=== PATIENT | female | born 1930 | race Caucasian/White ===

== ENCOUNTER 2017-10-15 08:18 | Inpatient (IN) | payer MEDICARE ==
[~2017-10-15] VITALS: Ht 160 cm; Wt 59.0 kg
[2017-10-15] MEDS ORDERED: normal saline 1000ml 1,000 ML IV ONE (08:26)
[2017-10-15] MEDS ORDERED: nitroGLYCERIN 0.2mg/hour patch TD ONE (08:30)
[2017-10-15 09:12] LABS: CLARITY,URINE Clear (Clear); COLOR,URINE Yellow (Yellow); GLUCOSE, URINE Negative (Neg); KETONES,URINE Negative (Neg); LEUKOCYTE ESTERASE ,URINE Trace (Neg); NITRITES, URINE Negative (Neg); OCCULT BLOOD,URINE Negative (Neg); PROTEIN,URINE Negative (Neg); UROBILINOGEN,URINE 0.2 E.U/dL (0.2-1.0)
[2017-10-15 09:14] LABS: UA COLLECTION TYPE STRAIGHT CATH
[2017-10-15 09:26] LABS: BACTERIA,URINE 2+ /HPF (Neg); RBC,URINE NONE SEEN /HPF (0-2); SQUAMOUS EPITHELIAL CELL,UR FEW /LPF (FEW); WBC,URINE 0-4 /HPF (0-4)
[2017-10-15 10:00] LABS: ALANINE AMINOTRANSFERASE 17 U/L (12-78); ALBUMIN/GLOBULIN RATIO 1.3 (1.1-1.5); ALKALINE PHOSPHATASE 83 IU/L (46-116); ANION GAP 8 (8-16); ASPARTATE AMINO TRANSFERASE 15 U/L (10-37); BILIRUBIN,TOTAL 0.8 MG/DL (0.1-1.0); BLOOD UREA NITROGEN 16 MG/DL (7-18); CALCIUM 9.4 MG/DL (8.5-10.1); CHLORIDE 95 MMOL/L (99-107); CREATINE KINASE 27 U/L (26-192); GLUCOSE 253 MG/DL (70-104); MAGNESIUM 1.3 MG/DL (1.5-2.4); PHOSPHORUS 3.8 MG/DL (2.3-4.5); POTASSIUM 3.8 MMOL/L (3.5-5.1); SODIUM 134 MMOL/L (135-145); TOTAL CARBON DIOXIDE 30.6 MMOL/L (24-32); TOTAL PROTEIN 7.2 G/DL (6.4-8.2); eGFR 68 ML/MIN
[2017-10-15 10:18] LABS: HEMATOCRIT 30.3 % (35.0-45.0); HEMOGLOBIN 9.7 g/dl (12.0-16.0); MEAN CORPUSCULAR HEMOGLOBIN 25.2 PG (27.0-31.0); MEAN CORPUSCULAR HGB CONC 32.1 % (33.0-36.5); MEAN CORPUSCULAR VOLUME 78.7 FL (78-98); MEAN PLATELET VOLUME 10.2 FL (7.4-10.4); PLATELET COUNT 531 X10'3 (140-440); RED BLOOD COUNT 3.86 X10'6 (4.20-5.60); RED CELL DISTRIBUTION WIDTH 18.6 % (11.5-14.5); WHITE BLOOD COUNT 8.7 X10'3 (4.5-11.0)
[2017-10-15 10:25] LABS: TOTAL CELLS COUNTED 100
[2017-10-15 10:26] LABS: PLATELET ESTIMATE INCREASED
[2017-10-15 10:28] LABS: ANISOCYTOSIS 2+
[2017-10-15 10:30] LABS: GIANT PLATELET FEW; LARGE PLATELETS MODERATE
[2017-10-15 10:31] LABS: MICROCYTOSIS 1+; POIKILOCYTOSIS 1+; POLYCHROMASIA 1+
[2017-10-15 10:35] LABS: INR 1.1 INR; PARTIAL THROMBOPLASTIN TIME 28 SECONDS (22-32); PROTHROMBIN TIME 11.3 SECONDS (9.0-12.0)
[2017-10-15] MEDS ORDERED: METO25TA6 PO (11:04)
[2017-10-15] MEDS ORDERED: VALS1TAB75 PO (11:04)
[2017-10-15] MEDS ORDERED: HYDR500C18 PO (11:04)
[2017-10-15] MEDS ORDERED: POTA20PA3 (11:04)
[2017-10-15] MEDS ORDERED: CHOL100046 PO (11:04)
[2017-10-15] MEDS ORDERED: ATOR40TA PO (11:04)
[2017-10-15] MEDS ORDERED: APIX2.5T PO (11:04)
[2017-10-15] MEDS ORDERED: MAGN500C16 PO (11:04)
[2017-10-15] MEDS ORDERED: LEVO175T2 PO (11:04)
[2017-10-15] MEDS ORDERED: ASPI-1265 PO (11:04)
[2017-10-15] MEDS ORDERED: acetaminophen 325mg tablet PO PRN ×2 (12:50)
[2017-10-15] MEDS ORDERED: potassium Cl 40MEQ/NS 500ml 500 ML IV PRN ×2 (12:50)
[2017-10-15] MEDS ORDERED: magnesium 4gm in 100ml NS 100 ML IV PRN (12:50)
[2017-10-15] MEDS ORDERED: mag hydrox/Alum hydrox/simeth 30ml oral suspension PO PRN (12:50)
[2017-10-15] MEDS ORDERED: morphine 2 MG/ML inj. syringe IV PRN ×2 (12:50)
[2017-10-15] MEDS ORDERED: HYDROcodone/acetaminophen 5mg/325mg tablet PO PRN (12:50)
[2017-10-15] MEDS ORDERED: HYDROcodone/acetaminophen 10/325mg tab PO PRN (12:50)
[2017-10-15] MEDS ORDERED: magnesium 2GM in 50ml NS 50 ML IV PRN (12:50)
[2017-10-15] MEDS ORDERED: ondansetron/PF 4mg/2ml inj IV PRN (12:50)
[2017-10-15] MEDS ORDERED: magnesium hydroxide 30ml (MOM) UD suspension PO PRN (12:50)
[2017-10-15] MEDS ORDERED: potassium Cl 20 mEq SR tablet PO PRN ×2 (12:50)
[2017-10-15] MEDS ORDERED: magnesium 2GM in 50ml NS 50 ML IV ONE (12:50)
[2017-10-15] MEDS ORDERED: magnesium Cl slow-release 64mg tablet PO PRN (12:50)
[2017-10-15] MEDS ORDERED: pantoprazole 40 MG vial IV ONE (14:15)
[2017-10-15 14:25] VITALS: BP 169/98
[2017-10-15] MEDS: normal saline 1000ml 1,000 ML IV SCH ×2 (14:37→23:45)
[2017-10-15 14:57] LABS: OCCULT BLOOD STOOL POSITIVE (Neg)
[2017-10-15 15:00] VITALS: BP 146/70
[2017-10-15] MEDS ORDERED: MESSAGE TO PHARMACY PO ONE (15:20)
[2017-10-15] MEDS ORDERED: glucagon, human recombinant 1mg kit SUBCUT PRN (15:20)
[2017-10-15] MEDS ORDERED: dextrose ORAL solution 15 GM/59 ML bottle PO PRN ×2 (15:20)
[2017-10-15] MEDS ORDERED: dextrose 50%-water 50ml dispensing syringe IV PRN ×2 (15:20)
[2017-10-15] MEDS: nitroGLYCERIN 0.4mg SUBLingual tab SL PRN ×2 (16:50→17:01)
[2017-10-15] MEDS: isosorbide mononitrate 30mg tab.SR.24H PO SCH (17:25)
[2017-10-15 18:30] VITALS: BP 144/66
[2017-10-15] MEDS: metoprolol tartrate 25mg tablet PO SCH (19:43)
[2017-10-15] MEDS: magnesium oxide 400mg tablet PO SCH (19:44)
[2017-10-15] MEDS: heparin, porcine 5000 units/ml vial SQ SCH (19:44)
[2017-10-15] MEDS ORDERED: temazepam 15mg capsule PO PRN (21:00)
[2017-10-15 22:00] VITALS: BP 126/60
[2017-10-15] MEDS: insulin glargine (Lantus) pen - multi-dose SQ SCH (22:00)
[2017-10-16] VITALS (13 sets, daily range): BP systolic 132–186; BP diastolic 69–96
[2017-10-16] MEDS: nitroGLYCERIN 0.4mg SUBLingual tab SL PRN ×2 (04:54→06:18)
[2017-10-16 06:20] LABS: INR 1.1 INR
[2017-10-16 06:26] LABS: ALBUMIN 3.6 G/DL (3.4-5.0); ANION GAP 10 (8-16); BLOOD UREA NITROGEN 14 MG/DL (7-18); CALCIUM 8.6 MG/DL (8.5-10.1); CHLORIDE 99 MMOL/L (99-107); GLUCOSE 176 MG/DL (70-104); MAGNESIUM 1.6 MG/DL (1.5-2.4); POTASSIUM 3.6 MMOL/L (3.5-5.1); SODIUM 137 MMOL/L (135-145); TOTAL CARBON DIOXIDE 28.2 MMOL/L (24-32); eGFR 79 ML/MIN
[2017-10-16 06:30] LABS: HEMATOCRIT 27.8 % (35.0-45.0); HEMOGLOBIN 8.9 g/dl (12.0-16.0); MEAN CORPUSCULAR HEMOGLOBIN 24.9 PG (27.0-31.0); MEAN CORPUSCULAR HGB CONC 31.9 % (33.0-36.5); MEAN CORPUSCULAR VOLUME 78.1 FL (78-98); MEAN PLATELET VOLUME 9.9 FL (7.4-10.4); PLATELET COUNT 465 X10'3 (140-440); RED BLOOD COUNT 3.57 X10'6 (4.20-5.60); RED CELL DISTRIBUTION WIDTH 20.5 % (11.5-14.5); WHITE BLOOD COUNT 11.2 X10'3 (4.5-11.0)
[2017-10-16 06:37] LABS: BASOPHILS % (MANUAL) 1 % (0-1); LYMPHOCYTES % (MANUAL) 15 % (21-51); MONOCYTES % (MANUAL) 20 % (2-12); NEUTROPHILS % (MANUAL) 64 % (42-75); PLATELET ESTIMATE INCREASED; SMUDGE CELLS FEW; TOTAL CELLS COUNTED 100
[2017-10-16 06:38] LABS: ANISOCYTOSIS 2+; LARGE PLATELETS FEW; SCHISTOCYTES FEW; TARGET CELLS FEW
[2017-10-16] MEDS: aspirin 81mg tab.chew PO SCH (07:49)
[2017-10-16] MEDS: HYDROchlorothiazide 12.5mg capsule PO SCH (07:49)
[2017-10-16] MEDS: atorvastatin 20mg tablet PO SCH (07:49)
[2017-10-16] MEDS: magnesium oxide 400mg tablet PO SCH ×2 (07:50→20:27)
[2017-10-16] MEDS: vitamin D (cholecalciferol) 1,000 unit tablet PO SCH (07:50)
[2017-10-16] MEDS: potassium Cl 20 mEq SR tablet PO SCH (07:50)
[2017-10-16] MEDS: metoprolol tartrate 25mg tablet PO SCH ×2 (07:50→20:27)
[2017-10-16] MEDS: isosorbide mononitrate 30mg tab.SR.24H PO SCH (07:50)
[2017-10-16] MEDS: normal saline 1000ml 1,000 ML IV SCH ×2 (07:51→18:48)
[2017-10-16] MEDS: heparin, porcine 5000 units/ml vial SQ SCH ×2 (07:56→20:27)
[2017-10-16] MEDS ORDERED: MAGNESIUM OXIDE PO SCH (08:00)
[2017-10-16] MEDS: K and/or MAG REPLACEMENT MC SCH (08:00)
[2017-10-16] MEDS ORDERED: VALSARTAN PO SCH (08:00)
[2017-10-16] MEDS ORDERED: HYDROCHLOROTHIAZIDE PO SCH (08:00)
[2017-10-16] MEDS ORDERED: [UNRECOGNIZED DRUG - OTHER] PO SCH (08:00)
[2017-10-16] MEDS ORDERED: non-formulary drug (Atorvastatin Calcium* (Lipitor*) 1 TAB) PO SCH (08:00)
[2017-10-16] MEDS: insulin Lispro (HumaLOG) vial - multi-dose SQ SCH ×2 (08:01→13:44)
[2017-10-16] MEDS ORDERED: magnesium Cl slow-release 64mg tablet PO PRN (09:45)
[2017-10-16] MEDS ORDERED: potassium Cl 40MEQ/NS 500ml 500 ML IV PRN ×2 (09:45)
[2017-10-16] MEDS ORDERED: magnesium 4gm in 100ml NS 100 ML IV PRN (09:45)
[2017-10-16] MEDS ORDERED: magnesium 2GM in 50ml NS 50 ML IV PRN (09:45)
[2017-10-16] MEDS ORDERED: potassium Cl 20 mEq SR tablet PO PRN ×2 (09:45)
[2017-10-16] MEDS ORDERED: K and/or MAG REPLACEMENT MC ONE (09:45)
[2017-10-16] MEDS ORDERED: LIDOcaine 1%/PF (10mg/ml) 5ml vial ONE (16:30)
[2017-10-16] MEDS ORDERED: midazolam 2 mg/2 ml injection ONE (16:30)
[2017-10-16] MEDS ORDERED: verapamil 2.5 mg/ml inj IV ONE (16:30)
[2017-10-16] MEDS ORDERED: fentaNYL/PF 50MCG/1 ML 2ML syringe ONE (16:30)
[2017-10-16] MEDS ORDERED: nitroGLYCERIN-Tridil 50MG/D5W 250 ML IV ONE (16:30)
[2017-10-16] MEDS ORDERED: heparin 1,000unit/ml 10ml vial 10 ML ONE (16:31)
[2017-10-16] MEDS ORDERED: iohexol 350MG/ML 100ml bottle IV ONE ×2 (16:31→17:14)
[2017-10-16] MEDS ORDERED: heparin 1,000 UNITS/NS 500ml 500 ML ONE (16:58)
[2017-10-16] MEDS ORDERED: ticagrelor 90mg tablet ONE (17:31)
[2017-10-16] MEDS ORDERED: iohexol 350 MG/ML 50ML vial IV ONE ×2 (17:32→17:41)
[2017-10-16] MEDS ORDERED: furosemide 40mg/4ml inj ONE (18:23)
[2017-10-16] MEDS ORDERED: furosemide 20 MG/2 ML vial IV ONE (18:30)
[2017-10-16] MEDS: insulin glargine (Lantus) pen - multi-dose SQ SCH (21:16)
[2017-10-17] VITALS (7 sets, daily range): BP systolic 115–150; BP diastolic 58–76
[2017-10-17] MEDS: normal saline 1000ml 1,000 ML IV SCH (03:51)
[2017-10-17 06:35] LABS: HEMATOCRIT 25.9 % (35.0-45.0); HEMOGLOBIN 8.4 g/dl (12.0-16.0); MEAN CORPUSCULAR HEMOGLOBIN 24.9 PG (27.0-31.0); MEAN CORPUSCULAR HGB CONC 32.5 % (33.0-36.5); MEAN CORPUSCULAR VOLUME 76.5 FL (78-98); MEAN PLATELET VOLUME 9.8 FL (7.4-10.4); PLATELET COUNT 469 X10'3 (140-440); RED BLOOD COUNT 3.38 X10'6 (4.20-5.60); WHITE BLOOD COUNT 15.9 X10'3 (4.5-11.0)
[2017-10-17 06:39] LABS: INR 1.1 INR; PROTHROMBIN TIME 11.8 SECONDS (9.0-12.0)
[2017-10-17 06:54] LABS: ALBUMIN 3.5 G/DL (3.4-5.0); ANION GAP 12 (8-16); BLOOD UREA NITROGEN 11 MG/DL (7-18); BUN/CREATININE RATIO 13.8 (6.6-38.0); CALCIUM 8.5 MG/DL (8.5-10.1); CHLORIDE 94 MMOL/L (99-107); CHOL/HDL RATIO 1.3 (0.00-4.99); CHOLESTEROL 55 MG/DL (0-200); GLUCOSE 156 MG/DL (70-104); HDL CHOLESTEROL 44 MG/DL (35-60); LDL CHOLESTEROL 15 MG/DL (50-100); MAGNESIUM 1.6 MG/DL (1.5-2.4); POTASSIUM 3.2 MMOL/L (3.5-5.1); SODIUM 134 MMOL/L (135-145); TRIGLYCERIDES 39 MG/DL (20-135); eGFR 68 ML/MIN
[2017-10-17 07:18] LABS: ANISOCYTOSIS 2+; PLATELET ESTIMATE INCREASED; TOTAL CELLS COUNTED 100
[2017-10-17 07:19] LABS: GIANT PLATELET FEW; HYPERSEGMENTED NEUTROPHILS 2+; HYPOCHROMASIA 1+; LARGE PLATELETS FEW; MICROCYTOSIS 1+
[2017-10-17 07:20] LABS: ELLIPTOCYTES FEW; POLYCHROMASIA 1+; SCHISTOCYTES FEW; TARGET CELLS 1+
[2017-10-17] MEDS: K and/or MAG REPLACEMENT MC SCH (08:00)
[2017-10-17] MEDS: potassium Cl 20 mEq SR tablet PO SCH (09:03)
[2017-10-17] MEDS: metoprolol tartrate 25mg tablet PO SCH ×2 (09:03→21:48)
[2017-10-17] MEDS: HYDROchlorothiazide 12.5mg capsule PO SCH (09:04)
[2017-10-17] MEDS: aspirin 81mg tab.chew PO SCH (09:04)
[2017-10-17] MEDS: magnesium oxide 400mg tablet PO SCH ×2 (09:04→21:36)
[2017-10-17] MEDS: isosorbide mononitrate 30mg tab.SR.24H PO SCH (09:04)
[2017-10-17] MEDS: ticagrelor 90mg tablet PO SCH ×2 (09:05→21:37)
[2017-10-17] MEDS: heparin, porcine 5000 units/ml vial SQ SCH ×2 (09:05→21:36)
[2017-10-17] MEDS: atorvastatin 20mg tablet PO SCH (09:05)
[2017-10-17] MEDS: vitamin D (cholecalciferol) 1,000 unit tablet PO SCH (09:05)
[2017-10-17] MEDS: insulin Lispro (HumaLOG) vial - multi-dose SQ SCH (09:09)
[2017-10-17 12:30] LABS: ABG BASE EXCESS 4.5 mmol/L (-2.0-3.0); ABG HCO3 28.2 mmol/L (22.0-26.0); ABG OXYGEN SATURATION 98.2 % (95-98); ABG PCO2 (T) 38.1 mmHg (32.0-45.0); ABG PH (T) 7.487 (7.350-7.450); ABG PO2 (T) 106.3 mmHg (83-108); ALLEN'S TEST Positive; FCOHb 0.7 % (0.5-1.5); FLOW 6 L/min; FMetHb 0.1 % (0.3-1.12); FO2Hb 97.4 % (94-100); RESPIRATORY RATE (OBSERVED) 14 b/min; TOTAL HEMOGLOBIN 9.2 G/dl (12.0-16.0)
[2017-10-17 13:00] LABS: HEMATOCRIT 27.5 % (35.0-45.0); HEMOGLOBIN 8.6 g/dl (12.0-16.0); MEAN CORPUSCULAR HEMOGLOBIN 24.8 PG (27.0-31.0); MEAN CORPUSCULAR HGB CONC 31.4 % (33.0-36.5); MEAN CORPUSCULAR VOLUME 79.2 FL (78-98); MEAN PLATELET VOLUME 9.9 FL (7.4-10.4); PLATELET COUNT 501 X10'3 (140-440); RED BLOOD COUNT 3.47 X10'6 (4.20-5.60); RED CELL DISTRIBUTION WIDTH 20.3 % (11.5-14.5); WHITE BLOOD COUNT 17.8 X10'3 (4.5-11.0)
[2017-10-17 13:04] LABS: INR 1.1 INR; PARTIAL THROMBOPLASTIN TIME 33 SECONDS (22-32); PROTHROMBIN TIME 11.8 SECONDS (9.0-12.0)
[2017-10-17 13:11] LABS: ALBUMIN 3.6 G/DL (3.4-5.0); ANION GAP 6 (8-16); BLOOD UREA NITROGEN 13 MG/DL (7-18); BUN/CREATININE RATIO 14.4 (6.6-38.0); CALCIUM 8.8 MG/DL (8.5-10.1); CHLORIDE 94 MMOL/L (99-107); GLUCOSE 164 MG/DL (70-104); SODIUM 133 MMOL/L (135-145); TOTAL CARBON DIOXIDE 33.3 MMOL/L (24-32); eGFR 59 ML/MIN
[2017-10-17 13:18] LABS: TROPONIN I 0.78 NG/ML (0.0-0.05)
[2017-10-17] MEDS ORDERED: levoFLOXACIN-Levaquin 750MG/D5 150 ML IV STA (13:31)
[2017-10-17 13:45] LABS: ANISOCYTOSIS 2+; HYPOCHROMASIA 1+; PLATELET ESTIMATE INCREASED; TOTAL CELLS COUNTED 100
[2017-10-17 13:46] LABS: GIANT PLATELET FEW; HYPERSEGMENTED NEUTROPHILS 2+; LARGE PLATELETS FEW; POLYCHROMASIA 2+; SCHISTOCYTES FEW; TARGET CELLS 1+
[2017-10-17 13:47] LABS: MICROCYTOSIS 1+
[2017-10-17] MEDS ORDERED: pantoprazole 40 MG vial IV ONE (15:10)
[2017-10-17] MEDS: pantoprazole 40MG/NS 100ML BAG 100 ML IV SCH ×3 (15:47→21:18)
[2017-10-17] MEDS: insulin glargine (Lantus) pen - multi-dose SQ SCH (21:00)
[2017-10-18] VITALS (7 sets, daily range): BP systolic 123–165; BP diastolic 61–70
[2017-10-18] MEDS: pantoprazole 40MG/NS 100ML BAG 100 ML IV SCH ×5 (01:39→21:57)
[2017-10-18 06:45] LABS: HEMATOCRIT 24.6 % (35.0-45.0); HEMOGLOBIN 7.9 g/dl (12.0-16.0); MEAN CORPUSCULAR HEMOGLOBIN 25.1 PG (27.0-31.0); MEAN CORPUSCULAR HGB CONC 32.3 % (33.0-36.5); MEAN CORPUSCULAR VOLUME 77.7 FL (78-98); MEAN PLATELET VOLUME 9.7 FL (7.4-10.4); PLATELET COUNT 457 X10'3 (140-440); RED BLOOD COUNT 3.16 X10'6 (4.20-5.60); RED CELL DISTRIBUTION WIDTH 19.9 % (11.5-14.5); WHITE BLOOD COUNT 16.2 X10'3 (4.5-11.0)
[2017-10-18 06:50] LABS: INR 1.2 INR; PROTHROMBIN TIME 12.2 SECONDS (9.0-12.0)
[2017-10-18 06:54] LABS: ALBUMIN 3.2 G/DL (3.4-5.0); ANION GAP 7 (8-16); BLOOD UREA NITROGEN 14 MG/DL (7-18); BUN/CREATININE RATIO 15.6 (6.6-38.0); CALCIUM 8.7 MG/DL (8.5-10.1); CHLORIDE 96 MMOL/L (99-107); GLUCOSE 112 MG/DL (70-104); MAGNESIUM 1.8 MG/DL (1.5-2.4); POTASSIUM 3.6 MMOL/L (3.5-5.1); SODIUM 133 MMOL/L (135-145); TOTAL CARBON DIOXIDE 30.1 MMOL/L (24-32); eGFR 59 ML/MIN
[2017-10-18 07:55] LABS: TOTAL CELLS COUNTED 100
[2017-10-18 07:56] LABS: ANISOCYTOSIS 2+; HYPERSEGMENTED NEUTROPHILS 2+; HYPOCHROMASIA 1+; MICROCYTOSIS 1+; PLATELET ESTIMATE INCREASED; POLYCHROMASIA 3+; SCHISTOCYTES FEW; TARGET CELLS 1+
[2017-10-18] MEDS: HYDROchlorothiazide 12.5mg capsule PO SCH (08:00)
[2017-10-18] MEDS: K and/or MAG REPLACEMENT MC SCH (08:00)
[2017-10-18] MEDS: metoprolol tartrate 25mg tablet PO SCH ×3 (08:00→20:00)
[2017-10-18] MEDS: isosorbide mononitrate 30mg tab.SR.24H PO SCH (08:00)
[2017-10-18] MEDS: heparin, porcine 5000 units/ml vial SQ SCH ×2 (08:38→19:49)
[2017-10-18] MEDS: magnesium oxide 400mg tablet PO SCH ×2 (08:38→19:48)
[2017-10-18] MEDS: vitamin D (cholecalciferol) 1,000 unit tablet PO SCH (08:38)
[2017-10-18] MEDS: potassium Cl 20 mEq SR tablet PO SCH (08:39)
[2017-10-18] MEDS: ticagrelor 90mg tablet PO SCH ×2 (08:39→19:48)
[2017-10-18] MEDS: atorvastatin 20mg tablet PO SCH (08:39)
[2017-10-18] MEDS: aspirin 81mg tab.chew PO SCH (08:39)
[2017-10-18 13:53] LABS: HEMATOCRIT 24.4 % (35.0-45.0); HEMOGLOBIN 7.6 g/dl (12.0-16.0); MEAN CORPUSCULAR HEMOGLOBIN 24.6 PG (27.0-31.0); MEAN CORPUSCULAR HGB CONC 30.9 % (33.0-36.5); MEAN CORPUSCULAR VOLUME 79.4 FL (78-98); MEAN PLATELET VOLUME 9.5 FL (7.4-10.4); PLATELET COUNT 454 X10'3 (140-440); RED BLOOD COUNT 3.07 X10'6 (4.20-5.60); RED CELL DISTRIBUTION WIDTH 20.3 % (11.5-14.5); WHITE BLOOD COUNT 11.8 X10'3 (4.5-11.0)
[2017-10-18 14:08] LABS: ANISOCYTOSIS 2+; MICROCYTOSIS 1+; PLATELET ESTIMATE INCREASED; TOTAL CELLS COUNTED 100
[2017-10-18 14:09] LABS: HYPERSEGMENTED NEUTROPHILS 2+; HYPOCHROMASIA 1+; LARGE PLATELETS FEW; POLYCHROMASIA 2+; SCHISTOCYTES FEW; TARGET CELLS 1+
[2017-10-18 20:50] LABS: PARTIAL THROMBOPLASTIN TIME 32 SECONDS (22-32)
[2017-10-18] MEDS: insulin glargine (Lantus) pen - multi-dose SQ SCH (21:55)
[2017-10-19] VITALS (19 sets, daily range): BP systolic 126–181; BP diastolic 56–94
[2017-10-19] MEDS: pantoprazole 40MG/NS 100ML BAG 100 ML IV SCH ×2 (03:13→06:00)
[2017-10-19 06:40] LABS: HEMOGLOBIN 8.1 g/dl (12.0-16.0); MEAN CORPUSCULAR HEMOGLOBIN 25.1 PG (27.0-31.0); MEAN CORPUSCULAR HGB CONC 32.3 % (33.0-36.5); MEAN CORPUSCULAR VOLUME 77.9 FL (78-98); MEAN PLATELET VOLUME 9.6 FL (7.4-10.4); PLATELET COUNT 495 X10'3 (140-440); RED BLOOD COUNT 3.21 X10'6 (4.20-5.60); RED CELL DISTRIBUTION WIDTH 20.6 % (11.5-14.5); WHITE BLOOD COUNT 11.5 X10'3 (4.5-11.0)
[2017-10-19] MEDS ORDERED: fentaNYL/PF 50MCG/1 ML 2ML syringe ONE (06:49)
[2017-10-19] MEDS ORDERED: LIDOcaine Viscous 15ml cup ONE (06:49)
[2017-10-19] MEDS ORDERED: MIDAZolam 1mg/ml 10ml vial ONE (06:49)
[2017-10-19 07:01] LABS: INR 1.1 INR; PROTHROMBIN TIME 11.4 SECONDS (9.0-12.0)
[2017-10-19 07:06] LABS: GLUCOSE 131 MG/DL (70-104)
[2017-10-19 07:07] LABS: ALBUMIN 3.1 G/DL (3.4-5.0); ANION GAP 8 (8-16); BLOOD UREA NITROGEN 12 MG/DL (7-18); BUN/CREATININE RATIO 13.3 (6.6-38.0); CALCIUM 8.4 MG/DL (8.5-10.1); CHLORIDE 99 MMOL/L (99-107); MAGNESIUM 1.8 MG/DL (1.5-2.4); POTASSIUM 3.9 MMOL/L (3.5-5.1); SODIUM 135 MMOL/L (135-145); TOTAL CARBON DIOXIDE 28.4 MMOL/L (24-32); eGFR 59 ML/MIN
[2017-10-19] MEDS: K and/or MAG REPLACEMENT MC SCH (07:24)
[2017-10-19 07:38] LABS: ANISOCYTOSIS 3+; HYPOCHROMASIA 1+; MICROCYTOSIS 1+; PLATELET ESTIMATE INCREASED; POLYCHROMASIA 2+; SCHISTOCYTES FEW; TARGET CELLS 2+; TOTAL CELLS COUNTED 100
[2017-10-19 07:39] LABS: GIANT PLATELET FEW; HYPERSEGMENTED NEUTROPHILS 2+; LARGE PLATELETS FEW
[2017-10-19] MEDS ORDERED: levoFLOXACIN-Levaquin 750MG/D5 150 ML IV SCH (08:00)
[2017-10-19] MEDS ORDERED: normal saline 1000ml 1,000 ML IV SCH (08:03)
[2017-10-19] MEDS ORDERED: LIDOcaine Viscous 15ml cup PO ONE (08:05)
[2017-10-19] MEDS ORDERED: simethicone 40mg/0.6ml oral drops 30ml MC ONE (08:05)
[2017-10-19] MEDS ORDERED: fentaNYL/PF 50MCG/1 ML 2ML syringe IV PRN (08:05)
[2017-10-19] MEDS ORDERED: MIDAZolam 5mg/5ml vial IV PRN (08:05)
[2017-10-19] MEDS ORDERED: pantoprazole 40mg Tablet.DR PO ONE (11:35)
[2017-10-19] MEDS: metoprolol tartrate 25mg tablet PO SCH ×2 (11:51→21:03)
[2017-10-19] MEDS: aspirin 81mg tab.chew PO SCH (11:51)
[2017-10-19] MEDS: potassium Cl 20 mEq SR tablet PO SCH (11:52)
[2017-10-19] MEDS: HYDROchlorothiazide 12.5mg capsule PO SCH (11:53)
[2017-10-19] MEDS: vitamin D (cholecalciferol) 1,000 unit tablet PO SCH (11:54)
[2017-10-19] MEDS: heparin, porcine 5000 units/ml vial SQ SCH (11:55)
[2017-10-19] MEDS: magnesium oxide 400mg tablet PO SCH ×2 (11:56→21:03)
[2017-10-19] MEDS: isosorbide mononitrate 30mg tab.SR.24H PO SCH (11:56)
[2017-10-19] MEDS: ticagrelor 90mg tablet PO SCH ×2 (11:56→21:03)
[2017-10-19] MEDS: atorvastatin 20mg tablet PO SCH (12:01)
[2017-10-19] MEDS: insulin Lispro (HumaLOG) vial - multi-dose SQ SCH ×2 (14:44→19:04)
[2017-10-19] MEDS: lactobacillus rhamnosus 10,000 MMU CELLS/CAPSULE PO SCH (17:38)
[2017-10-19] MEDS: apixaban 2.5mg tablet PO SCH (21:03)
[2017-10-19] MEDS: insulin glargine (Lantus) pen - multi-dose SQ SCH (21:24)
[2017-10-20 07:00] VITALS: BP 127/55
[2017-10-20 07:22] LABS: ALBUMIN 3.4 G/DL (3.4-5.0); ANION GAP 9 (8-16); BLOOD UREA NITROGEN 13 MG/DL (7-18); BUN/CREATININE RATIO 11.8 (6.6-38.0); CALCIUM 9.1 MG/DL (8.5-10.1); CHLORIDE 97 MMOL/L (99-107); GLUCOSE 139 MG/DL (70-104); INR 1.2 INR; MAGNESIUM 1.9 MG/DL (1.5-2.4); POTASSIUM 3.9 MMOL/L (3.5-5.1); SODIUM 135 MMOL/L (135-145); TOTAL CARBON DIOXIDE 28.9 MMOL/L (24-32); eGFR 47 ML/MIN
[2017-10-20] MEDS ORDERED: pantoprazole 40mg Tablet.DR PO SCH (07:30)
[2017-10-20] MEDS: HYDROchlorothiazide 12.5mg capsule PO SCH (08:00)
[2017-10-20] MEDS: isosorbide mononitrate 30mg tab.SR.24H PO SCH (08:00)
[2017-10-20] MEDS: metoprolol tartrate 25mg tablet PO SCH (08:00)
[2017-10-20] MEDS: K and/or MAG REPLACEMENT MC SCH (08:00)
[2017-10-20 08:12] LABS: HEMATOCRIT 26.7 % (35.0-45.0); HEMOGLOBIN 8.6 g/dl (12.0-16.0); MEAN CORPUSCULAR HEMOGLOBIN 24.7 PG (27.0-31.0); MEAN CORPUSCULAR VOLUME 77.2 FL (78-98); MEAN PLATELET VOLUME 9.7 FL (7.4-10.4); PLATELET COUNT 537 X10'3 (140-440); RED BLOOD COUNT 3.46 X10'6 (4.20-5.60); RED CELL DISTRIBUTION WIDTH 20.6 % (11.5-14.5); WHITE BLOOD COUNT 13.2 X10'3 (4.5-11.0)
[2017-10-20 09:33] LABS: ANISOCYTOSIS 3+; NUCLEATED RED BLOOD CELLS 1 /100WBC (0-0); PLATELET ESTIMATE INCREASED; TOTAL CELLS COUNTED 100
[2017-10-20 09:34] LABS: GIANT PLATELET FEW; LARGE PLATELETS FEW
[2017-10-20 09:35] LABS: MICROCYTOSIS 2+
[2017-10-20 09:36] LABS: POLYCHROMASIA 1+; SCHISTOCYTES FEW; TARGET CELLS 2+
[2017-10-20 09:37] LABS: HYPOCHROMASIA 1+
[2017-10-20] MEDS: insulin Lispro (HumaLOG) vial - multi-dose SQ SCH (09:41)
[2017-10-20] MEDS: vitamin D (cholecalciferol) 1,000 unit tablet PO SCH (09:43)
[2017-10-20] MEDS: potassium Cl 20 mEq SR tablet PO SCH (09:48)
[2017-10-20] MEDS: atorvastatin 20mg tablet PO SCH (09:49)
[2017-10-20] MEDS: lactobacillus rhamnosus 10,000 MMU CELLS/CAPSULE PO SCH (09:50)
[2017-10-20] MEDS: ticagrelor 90mg tablet PO SCH (09:50)
[2017-10-20] MEDS: magnesium oxide 400mg tablet PO SCH (09:50)
[2017-10-20] MEDS: apixaban 2.5mg tablet PO SCH (09:51)
[2017-10-20 11:00] VITALS: BP 141/54
[2017-10-20] MEDS ORDERED: LEVO500T2 PO (11:37)
[2017-10-20] MEDS ORDERED: TICA90TA2 PO (11:46)
== END 2017-10-20 14:45 | disposition home health service (06) | DRG 246 ==
LOC: ER 08:20 → ED HOLD 13:06 → PCU 3S 14:33
PROVIDERS: ADMIT Internal Medicine; ATTEND Legal Medicine
PROC: 027034Z Dilation of Coronary Artery, One Artery with Drug-eluting Intraluminal Device, Percutaneous Approach (ICD-10-PCS; principal; 2017-10-16)
PROC: 4A023N7 Measurement of Cardiac Sampling and Pressure, Left Heart, Percutaneous Approach (ICD-10-PCS; 2017-10-16)
PROC: B2111ZZ Fluoroscopy of Multiple Coronary Arteries using Low Osmolar Contrast (ICD-10-PCS; 2017-10-16)
PROC: B2151ZZ Fluoroscopy of Left Heart using Low Osmolar Contrast (ICD-10-PCS; 2017-10-16)
PROC: BW281ZZ Computerized Tomography (CT Scan) of Head using Low Osmolar Contrast (ICD-10-PCS; 2017-10-17)
PROC: 0DJ08ZZ Inspection of Upper Intestinal Tract, Via Natural or Artificial Opening Endoscopic (ICD-10-PCS; 2017-10-19)
DX: I25.110 Atherosclerotic heart disease of native coronary artery with unstable angina pectoris (principal); A41.9 Sepsis, unspecified organism; I63.9 Cerebral infarction, unspecified; J18.9 Pneumonia, unspecified organism; G93.49 Other encephalopathy; K92.0 Hematemesis; I27.20 Pulmonary hypertension, unspecified; I48.0 Paroxysmal atrial fibrillation; D64.9 Anemia, unspecified; E11.9 Type 2 diabetes mellitus without complications; E87.1 Hypo-osmolality and hyponatremia; N39.0 Urinary tract infection, site not specified; G97.82 Other postprocedural complications and disorders of nervous system; E83.42 Hypomagnesemia; I08.3 Combined rheumatic disorders of mitral, aortic and tricuspid valves; M79.81 Nontraumatic hematoma of soft tissue; E78.5 Hyperlipidemia, unspecified; E87.6 Hypokalemia; I10 Essential (primary) hypertension; Z90.710 Acquired absence of both cervix and uterus; Z88.0 Allergy status to penicillin; Z88.6 Allergy status to analgesic agent; Z88.1 Allergy status to other antibiotic agents; Z88.8 Allergy status to other drugs, medicaments and biological substances; Z88.2 Allergy status to sulfonamides; Z79.01 Long term (current) use of anticoagulants; Z79.82 Long term (current) use of aspirin; Z79.899 Other long term (current) drug therapy; Z86.73 Personal history of transient ischemic attack (TIA), and cerebral infarction without residual deficits
CPT/HCPCS: 93306; 96360; 99285; C9600; 36415; 36600; 70450; 70544; 70551; 71045; 80048; 80053; 80061; 81001; 82272; 82550; 82803; 82948; 83036; 83735; 83874; 83880; 84100; 84484; 85018; 85025; 85610; 85730; 86885; 86900; 86901; 86920; 87070; 87077; 87088; 87186; 93005; 93880; 95816; 97110; 97116; 97161; 97530; 99152; 99153; A4315; A4620; A6257; A6258; C1725; C1769; C1874; C9113; G0500; J1644; J1815; J1940; J1956; J2001; J2250; J2405; J3010; J3475; J3490; J7030; Q9967

== ENCOUNTER 2018-10-19 14:09 | Emergency (ER) | payer MEDICARE ==
[~2018-10-19] VITALS: Ht 160 cm; Wt 55.5 kg
[~2018-10-19 14:09] MED LIST: APIX2.5T PO; ATOR40TA PO; CHOL100046 PO; HYDR500C18 PO; LEVO175T2 PO; MAGN500C16 PO; METO25TA6 PO; POTA20PA40; TICA90TA2 PO; VALS1TAB75 PO
[2018-10-19 15:17] LABS: HEMATOCRIT 39.9 % (35.0-45.0); HEMOGLOBIN 12.8 g/dl (12.0-16.0); MEAN CORPUSCULAR HGB CONC 32.1 % (33.0-36.5); MEAN CORPUSCULAR VOLUME 93.7 FL (78-98); MEAN PLATELET VOLUME 10.1 FL (7.4-10.4); PLATELET COUNT 434 X10'3 (140-440); RED BLOOD COUNT 4.26 X10'6 (4.20-5.60); WHITE BLOOD COUNT 14.4 X10'3 (4.5-11.0)
[2018-10-19 15:27] LABS: ALANINE AMINOTRANSFERASE 20 U/L (12-78); ALBUMIN 3.9 G/DL (3.4-5.0); ALKALINE PHOSPHATASE 109 IU/L (46-116); ANION GAP 12 (8-16); ASPARTATE AMINO TRANSFERASE 18 U/L (10-37); BILIRUBIN,TOTAL 0.5 MG/DL (0.1-1.0); BLOOD UREA NITROGEN 18 MG/DL (7-18); BUN/CREATININE RATIO 14.8 (6.6-38.0); CALCIUM 9.1 MG/DL (8.5-10.1); CHLORIDE 95 MMOL/L (99-107); CREATININE 1.22 MG/DL (0.40-0.90); GLUCOSE 169 MG/DL (70-104); POTASSIUM 4.4 MMOL/L (3.5-5.1); SODIUM 134 MMOL/L (135-145); TOTAL CARBON DIOXIDE 26.9 MMOL/L (24-32); TOTAL PROTEIN 7.8 G/DL (6.4-8.2); eGFR 42 ML/MIN
[2018-10-19 15:32] LABS: INR 1.1 INR; PARTIAL THROMBOPLASTIN TIME 33 SECONDS (22-32); PROTHROMBIN TIME 10.9 SECONDS (9.0-12.0)
[2018-10-19 15:43] LABS: TOTAL CELLS COUNTED 100
[2018-10-19 15:45] LABS: ANISOCYTOSIS 3+; PLATELET ESTIMATE NORMAL
[2018-10-19 15:49] LABS: GIANT PLATELET FEW; LARGE PLATELETS MODERATE
[2018-10-19 15:50] LABS: POIKILOCYTOSIS FEW
[2018-10-19 15:53] LABS: TARGET CELLS FEW
[2018-10-19] MEDS ORDERED: CEPH-572 PO (16:50)
[2018-10-19 17:00] VITALS: BP 149/65
[2018-10-19 17:13] LABS: CLARITY,URINE CLEAR (Clear); COLOR,URINE YELLOW (Yellow); GLUCOSE, URINE NEGATIVE (Neg); KETONES,URINE NEGATIVE (Neg); LEUKOCYTE ESTERASE ,URINE MODERATE (Neg); NITRITES, URINE NEGATIVE (Neg); OCCULT BLOOD,URINE NEGATIVE (Neg); PROTEIN,URINE TRACE mg/dl (Neg); UROBILINOGEN,URINE 0.2 E.U/dL (0.2-1.0)
[2018-10-19 17:17] LABS: UA COLLECTION TYPE CLN CATCH MIDSTREAM
[2018-10-19 17:24] LABS: BACTERIA,URINE 4+ /HPF (Neg); RBC,URINE NONE SEEN /HPF (0-2); WBC,URINE 50-100 /HPF (0-4)
[2018-10-19 17:25] LABS: SQUAMOUS EPITHELIAL CELL,UR FEW /LPF (FEW); WBC CLUMPS,URINE FEW /HPF (NEGATIVE)
[2018-10-22] MEDS ORDERED: METF500T PO (10:32)
[2018-10-22] MEDS ORDERED: LEVO25TA2 PO (10:32)
[2018-10-23] MEDS ORDERED: DOXY-200 PO (13:09)
== END 2018-10-19 17:01 | disposition home or self-care (01) ==
LOC: ER 14:09
DX: N39.0 Urinary tract infection, site not specified (principal); D46.9 Myelodysplastic syndrome, unspecified; R53.1 Weakness; I48.91 Unspecified atrial fibrillation; Z86.73 Personal history of transient ischemic attack (TIA), and cerebral infarction without residual deficits; Z86.718 Personal history of other venous thrombosis and embolism; Z90.710 Acquired absence of both cervix and uterus; Z88.0 Allergy status to penicillin; Z88.1 Allergy status to other antibiotic agents; Z88.6 Allergy status to analgesic agent; Z88.8 Allergy status to other drugs, medicaments and biological substances; Z79.899 Other long term (current) drug therapy
CPT/HCPCS: 36415; 71045; 80053; 81001; 84484; 85025; 85610; 85730; 87077; 87088; 87186; 93005; 99284

== ENCOUNTER 2018-10-22 08:10 | Inpatient (IN) | payer MEDICARE | END 2018-10-23 15:30 | disposition home or self-care (01) | LOC: ER 08:10 → ED HOLD 13:09 → PCU 3S 20:26 | DX: I48.0 Paroxysmal atrial fibrillation (principal); Z86.73 Personal history of transient ischemic attack (TIA), and cerebral infarction without residual deficits; E06.3 Autoimmune thyroiditis ==